=== PATIENT | female | born 1970 | race Hispanic/Latino ===

== ENCOUNTER 2017-11-01 10:34 | Observation (INO) | payer MEDICAID ==
[2017-10-26 14:23] LABS: Basophils % (Auto) 0.3 % (0.0-1.8); Eosinophils # (Auto) 0.3 K/mm3 (0.0-0.4); Eosinophils % (Auto) 3.8 % (0.0-4.3); Hematocrit 38.4 % (30.3-42.9); Hemoglobin 13.1 gm/dl (10.1-14.3); Lymphocytes # (Auto) 2.2 K/mm3 (1.2-5.4); Lymphocytes % (Auto) 30.1 % (13.4-35.0); Mean Corpuscular HGB Conc 34 % (30-34); Mean Corpuscular Hemoglobin 32 pg (28-32); Mean Corpuscular Volume 94 fl (79-97); Monocytes # (Auto) 0.7 K/mm3 (0.0-0.8); Monocytes % (Auto) 9.1 % (0.0-7.3); Platelet Count 231 K/mm3 (140-440); Red Blood Count 4.11 M/mm3 (3.65-5.03); Red Cell Distribution Width 12.9 % (13.2-15.2)
[2017-10-26 14:44] LABS: Alanine Aminotransferase 16 units/L (7-56); Albumin 4.4 g/dL (3.9-5); BUN/Creatinine Ratio 27; Blood Urea Nitrogen 16 mg/dL (7-17); Calcium 9.5 mg/dL (8.4-10.2); Hemolysis Index 2
--- NOTE | 2017-10-26 17:44 | Anesthesia Consultation ---
Anesthesia Consult and Med Hx Date of service: 10/26/17 - Airway Anesthetic Teeth Evaluation: Good ROM Head & Neck: Adequate Mental/Hyoid Distance: Adequate - Pre-Operative Health Status ASA Pre-Surgery Classification: ASA2 Proposed Anesthetic Plan: General (TAP block in AM, pt denies GERD, ok to continue taking diet pills) - Pulmonary Hx Smoking: Yes (Former) - Central Nervous System Hx Psychiatric Problems: No - Other Systems Hx Cancer: Yes (Precancerous skin disease DSAP)
[~2017-11-01 10:34] MED LIST: DILAUDID IV PRN; LACTATED RINGERS 1,000 ML IV SCH; NEURONTIN PO NR; VERSED IV NR; ZOFRAN IV PRN
[2017-11-01] MEDS ORDERED: ZEMURON IV ONE (10:50)
[2017-11-01] MEDS ORDERED: SUBLIMAZE ONE ×2 (10:50→11:51)
[2017-11-01] MEDS ORDERED: XYLOCAINE MPF 2% ONE (10:50)
[2017-11-01] MEDS ORDERED: DIPRIVAN 10 MG/ML IV ONE (10:51)
[2017-11-01] MEDS ORDERED: ANCEF/STERILE WATER 2 GM/20 ML 2 GM/20 ML SYRINGE IV SCH (11:00)
--- NOTE | 2017-11-01 11:01 | History and Physical Report ---
History of Present Illness Date of examination: 11/01/17 Chief complaint: Symptomatic uterine fibroids History of present illness: Pt is a 47yo WF LMP 10/14/17 presents for surgical evaluation and treatment of prolonged heavy vaginal bleeding, prolapsed uterus and pain associated with Essure tubal occlusion coils. Pelvic u/s showed a Normal uterus 8.4 x 4.5 x 4cm , and endometrial biopsy was benign. She desires a Robotic Assisted Total Hysterectomy with Bilateral Salpingectomy. Past History Past Medical History: no pertinent history Past Surgical History: D&C, other (Essure tubal occlusion procedure) Family/Genetic History: none Social history: no significant social history, single, smoking Medications and Allergies Allergies Allergy/AdvReac Type Severity Reaction Status Date / Time hydrocodone Allergy Itching Verified 10/25/17 07:48 Home Medications Medication Instructions Recorded Confirmed Last Taken Type Benzphetamine HCl 50 mg PO BID 10/25/17 11/01/17 10/30/17 History Testosterone [Testim 1%] 1 applicatio TD QAM 10/25/17 11/01/17 11/01/17 08:30 History Thyroid,Pork [[place] Thyroid] 90 mg PO DAILY 10/25/17 11/01/17 11/01/17 08:30 History Fluorouracil 5% (Nf) [Efudex (Nf)] 1 applicatio TP BID 10/26/17 11/01/17 History Active Meds: Active Medications Celecoxib (Celebrex) 200 mg PO PREOP NR Stop: 11/01/17 23:59 Gabapentin (Neurontin) 300 mg PO PREOP NR Stop: 11/01/17 23:59 Hydromorphone HCl (Dilaudid) 0.5 mg IV Q10MIN PRN PRN Reason: Pain , Severe (7-10) Stop: 11/01/17 14:00 Lactated Ringer's (Lactated Ringers) 1,000 mls @ 100 mls/hr IV DIRECT HUSSEIN Midazolam HCl (Versed) 2 mg IV PREOP NR Stop: 11/01/17 23:59 Ondansetron HCl (Zofran) 4 mg IV ONCE PRN PRN Reason: Nausea And Vomiting Stop: 11/01/17 13:00 Review of Systems All systems: negative - Vital Signs Vital signs: Vital Signs Temp Pulse Resp BP 98.4 F 80 18 126/84 10/26/17 13:45 10/26/17 13:45 10/26/17 13:45 10/26/17 13:45 Temp Pulse Resp BP Pulse Ox 98.4 F 80 18 126/84 10/26/17 13:45 10/26/17 13:45 10/26/17 13:45 10/26/17 13:45 - Physical Exam Breasts: Positive: deferred Cardiovascular: Regular rate Lungs: Positive: Clear to auscultation Abdomen: Positive: normal appearance Genitourinary (Female): Positive: normal external genitalia Vagina: Positive: normal moisture Uterus: Positive: normal size Extremities: Positive: normal Results Result Diagrams: 10/26/17 13:50 10/26/17 13:50 All other labs normal. Ultrasound: report reviewed Assessment and Plan - Patient Problems (1) Menorrhagia with regular cycle Onset Date: 11/01/17 Current Visit: Yes Status: Acute Plan to address problem: A: Menorrhagia - uncontrolled with hormonal therapy Uterine prolapse Pelvic pain P: Admit for a Robotic Assisted Total Hysterectomy with Bilateral Salpingectomy Possible anterior colporrhaphy (2) Uterine prolapse Onset Date: 11/01/17 Current Visit: Yes Status: Acute (3) Pelvic pain Onset Date: 11/01/17 Current Visit: Yes Status: Acute
[2017-11-01] MEDS ORDERED: MARCAINE 0.5% 60 ML INFILTRATI ONE (11:03)
[2017-11-01] MEDS ORDERED: DECADRON ONE ×2 (11:03)
[2017-11-01] MEDS ORDERED: NACL BACTERIOSTATIC INFILTRATI ONE (11:03)
[2017-11-01] MEDS ORDERED: NEOSPORIN GU IR ONE ×2 (11:42→14:30)
[2017-11-01] MEDS ORDERED: ePHEDrine SULFATE ONE (12:39)
[2017-11-01] MEDS ORDERED: ZOFRAN ONE (13:26)
[2017-11-01] MEDS ORDERED: ROBINUL ONE (13:26)
[2017-11-01] MEDS ORDERED: NEO SYNEPHRINE/NS Syringe(OR USE) IV ONE (13:26)
[2017-11-01] MEDS ORDERED: BLOXIVERZ ONE (13:26)
[2017-11-01] MEDS ORDERED: NACL 0.9% IR ONE ×2 (14:30)
[2017-11-01] MEDS ORDERED: SODIUM CHLORIDE FLUSH SYRINGE 10 ML IV PRN (14:31)
[2017-11-01] MEDS ORDERED: PERCOCET 5/325 PO PRN (14:31)
[2017-11-01] MEDS ORDERED: ZOFRAN IV PRN (14:31)
[2017-11-01] MEDS ORDERED: MILK OF MAGNESIA PO PRN (14:31)
--- NOTE | 2017-11-01 14:53 | Operative Report ---
Operative Report Operative Report: Date of procedure: 11/01/2017 Pre-operative diagnosis: 1. Menorrhagia 2. Uterine prolapse 3. Pelvic pain Post-operative diagnosis: Same with bilateral ovarian cysts Procedure name(s): 1. Robotic-assisted total hysterectomy 2. Bilateral salpingectomy 3. Bilateral ovarian cystectomy Surgeon: Clem Max MD [employer]er: Diamond Guillen CSA Anesthesia: CAITY Block followed by general endotracheal intubation EBL: 70 mL's Findings: A 10-12 week size uterus with normal tubes bilaterally and bilateral ovarian cysts. There was a moderate size cystocele that was present on examination under anesthesia - the cystocele had resolved after removal of the uterus. Procedure: After the patient's first correctly identified she was prepped and draped in the usual sterile fashion and placed in the dorsolithotomy position. The bladder was first catheterized using Mauricio catheter and the speculum was placed in the vagina and the anterior lip of the cervix was grasped using a single-tooth tenaculum, and the medium Vesicare cup was placed. The tenaculum and speculum was then removed from the vagina and attention was then turned to the abdomen. The skin knife was used to make a small incision approximately 5 cm above the umbilicus through which a 12 mm trocar was placed under direct visualization. After adequate amount of abdominal insufflation visualization of the pelvic organs found the uterus to be enlarged and the tubes were normal bilaterally and the ovaries showed bilateral ovarian cysts. A right and left paramedian incision was made through which the 8 mm trochars were placed under direct visualization and a 5 mm trocar was placed in the right lower quadrant. The patient was then placed in steep Trendelenburg positioning and the robot was docked on the patient's left side. After all the robotic ports were connected and adequate functioning of the robotic arms were tested the surgeon then proceeded to the console to begin the hysterectomy. First the left round ligament was grasped, cauterized and cut, the left utero- ovarian ligaments were grasped, cauterized and cut, and the left fallopian tube also grasped, cauterized and cut along the mesosalpinx thus freeing the left ovary from the left uterine sidewall. The same procedure was performed on the right. The right round ligament was grasped, cauterized and cut, the right utero-ovarian ligaments were grasped, cauterized and cut, and the right fallopian tube also grasped, cauterized and cut along the mesosalpinx thus freeing the right ovary from the right uterine sidewall. The right and left ovarian cysts were excised and sent to pathology. The bladder flap was taken down anteriorly and the uterine vessels were grasped, cauterized and cut bilaterally. The cardinal ligaments were sequentially grasped, cauterized and cut down to the level of the uterosacral ligaments. At this time the posterior colpotomy was performed over the Vcare cup, and the cervix was circumscribed beginning posteriorly and meeting anteriorly until the cervix was freed. The cervix and uterus was then removed through the vagina and sent to pathology. The vaginal cuff was then closed using 2-0 Vloc suture in a running fashion. Irrigation was then performed and after good hemostasis was achieved the procedure was considered complete. The Tisseel sealant was then sprayed across the vaginal cuff site, and after excellent hemostasis was assured Interceed was placed across the vaginal cuff site. All instruments were then removed from the abdominal cavity. And each incision was closed using 0 Vicryl suture in a [id number] configuration on the fascia followed by 4-0 Monocryl suture in a subcuticular fashion on the skin. Each incision was also infiltrated using 0.5% Marcaine solution. The vaginal pack was removed. The patient tolerated the procedure well and was transported to the recovery room in stable condition.
[2017-11-01] MEDS: TORADOL IV SCH ×2 (15:05→21:22)
[2017-11-01] MEDS: DILAUDID IV PRN ×2 (15:20→15:45)
[2017-11-01] MEDS ORDERED: DILAUDID ONE (15:22)
[2017-11-01] MEDS: D5LR 1,000 ML IV SCH ×2 (15:50→21:23)
[2017-11-01] MEDS: ANCEF/NS 1 GM/50 ML 1 GM/50 ML BAG IV SCH (21:22)
[2017-11-01] MEDS ORDERED: COLACE PO SCH (22:00)
[2017-11-02] MEDS: ANCEF/NS 1 GM/50 ML 1 GM/50 ML BAG IV SCH (06:11)
[2017-11-02] MEDS: TORADOL IV SCH (06:12)
[2017-11-02 06:14] LABS: Hematocrit 36.5 % (30.3-42.9); Hemoglobin 11.9 gm/dl (10.1-14.3)
[2017-11-02] MEDS: D5LR 1,000 ML IV SCH (06:17)
--- NOTE | 2017-11-02 08:38 | Progress Note ---
Assessment and Plan - Patient Problems (1) Menorrhagia with regular cycle Onset Date: 11/01/17 Current Visit: Yes Status: Resolved (2) Uterine prolapse Onset Date: 11/01/17 Current Visit: Yes Status: Resolved (3) Pelvic pain Onset Date: 11/01/17 Current Visit: Yes Status: Resolved (4) Status post robot-assisted surgical procedure Onset Date: 11/02/17 Current Visit: Yes Status: Resolved Plan to address problem: A: S/P RATH - POD #1 Doing well P: May go home today. Subjective - Subjective Date of service: 11/02/17 Principal diagnosis: s/p RATH - POD #1 Interval history: Pt is a 47yo WF LMP 10/14/17 who presented for surgical evaluation and treatment of prolonged heavy vaginal bleeding, prolapsed uterus and pain associated with Essure tubal occlusion coils. She underwent an uncomplicated Robotic Assisted Total Hysterectomy with Bilateral Salpingectomy, and is currently feeling well. No complaints. She is tolerating a soft diet without nausea or vomiting, ambulating and voiding without difficulty. Patient reports: appetite normal, voiding normally, pain well controlled, flatus , ambulating normally, no dizzy ambulation, no nauseated Objective - Vital Signs Latest vital signs: Vital Signs Temp Pulse Resp BP BP Pulse Ox 11/02/17 04:00 98.7 F 77 18 107/61 11/02/17 00:00 98.7 F 78 18 100/54 11/01/17 19:30 98.7 F 78 16 101/64 11/01/17 16:20 97.8 F 74 18 103/53 103/53 96 11/01/17 16:15 14 11/01/17 16:00 75 15 106/55 96 11/01/17 15:45 74 13 102/53 96 11/01/17 15:30 77 14 101/58 97 11/01/17 15:20 15 11/01/17 15:15 68 16 99/53 97 11/01/17 15:05 15 11/01/17 15:00 69 15 97/54 99 11/01/17 14:50 57 L 14 104/54 100 11/01/17 14:45 55 L 12 97/55 100 11/01/17 14:40 97.0 F L 74 13 100/58 100 11/01/17 12:10 81 13 118/61 100 07/31/18 12:05 85 14 115/63 100 11/01/17 12:00 94 H 14 120/70 100 11/01/17 11:55 83 17 118/70 100 11/01/17 11:40 98.8 F 72 16 110/63 99 11/01/17 10:50 98.8 F 72 16 110/63 99 Intake and Output 11/01/17 11/02/17 11/02/17 22:59 06:59 14:59 Intake Total 968.75 1000 Output Total 985 2400 Balance -16.25 -1400 Intake: IV 968.75 1000 ANCEF/NS 1 GM/50 ML 1 gm 50 In 50 ml @ 100 mls/hr IV Q8H HUSSEIN Rx#:[id number] D5lr 1,000 ml @ 125 mls/ 693.75 1000 hr IV DIRECT HUSSEIN Rx#: [id number] Left Wrist 125 Output: Urine 985 2400 Indwelling Catheter 900 2400 Other: Total, Output Amount 900 800 Voiding Method Indwelling Catheter Indwelling Catheter Weight 83.915 kg - Exam Breasts: Present: deferred Cardiovascular: Present: Regular rate Lungs: Present: Clear to auscultation Abdomen: Present: normal appearance, soft Incision: Present: normal, dry, intact - Labs Labs: Laboratory Tests 10/26/17 10/26/17 10/26/17 13:50 13:50 13:50 WBC 7.3 RBC 4.11 Hgb 13.1 Hct 38.4 MCV 94 MCH 32 MCHC 34 RDW 12.9 L Plt Count 231 Lymph % (Auto) 30.1 Kerr % (Auto) 9.1 H Eos % (Auto) 3.8 Baso % (Auto) 0.3 Lymph # 2.2 Kerr # 0.7 Eos # 0.3 Baso # 0.0 Seg Neutrophils % 56.7 Seg Neutrophils # 4.1 Sodium 141 Potassium 4.3 Chloride 102.8 Carbon Dioxide 25 Anion Gap 18 BUN 16 Creatinine 0.6 L Estimated GFR > 60 BUN/Creatinine Ratio 27 Glucose 82 Calcium 9.5 Total Bilirubin 0.40 AST 16 ALT 16 Alkaline Phosphatase 51 Total Protein 7.0 Albumin 4.4 Albumin/Globulin Ratio 1.7 HCG, Qual Negative Blood Type Antibody Screen 11/01/17 11/02/17 11:10 05:49 WBC RBC Hgb 11.9 Hct 36.5 MCV MCH MCHC RDW Plt Count Lymph % (Auto) Kerr % (Auto) Eos % (Auto) Baso % (Auto) Lymph # Kerr # Eos # Baso # Seg Neutrophils % Seg Neutrophils # Sodium Potassium Chloride Carbon Dioxide Anion Gap BUN Creatinine Estimated GFR BUN/Creatinine Ratio Glucose Calcium Total Bilirubin AST ALT Alkaline Phosphatase Total Protein Albumin Albumin/Globulin Ratio HCG, Qual Blood Type A POSITIVE Antibody Screen Negative
--- NOTE | 2017-11-02 09:08 | Discharge Summary ---
Providers - Providers Date of Admission: 11/01/17 14:31 Date of discharge: 11/02/17 Attending physician: ADARSH LUCIA Primary care physician: CHASITY CANNON Hospitalization Reason for admission: other (Menorrhagia; uterine prolapse; pelvic pain) Procedure: other (Robotic Assisted Total Hysterectomy with Bilateral Salpingectomy) Incision: normal, dry, intact Other procedures: none complications: none Discharge diagnosis: other (s/p RATH ) Hospital course: Pt is a 47yo WF LMP 10/14/17 who presented for surgical evaluation and treatment of prolonged heavy vaginal bleeding, prolapsed uterus and pain associated with Essure tubal occlusion coils. Pelvic u/s showed a Normal uterus 8.4 x 4.5 x 4cm, and endometrial biopsy was benign. She underwent an uncomplicated Robotic Assisted Total Hysterectomy with Bilateral Salpingectomy, and is currently feeling well. No complaints. By POD#1 she was tolerating a reg diet without nausea or vomiting, ambulating and voiding without difficulty. She was therefore discharged to home on POD #1 in stable condition. Condition at discharge: Good Disposition: DC-01 TO HOME OR SELFCARE - Discharge Diagnoses (1) Menorrhagia with regular cycle Status: Resolved (2) Uterine prolapse Status: Resolved (3) Pelvic pain Status: Resolved Plan - Discharge Medications Prescriptions: Ibuprofen [Motrin] 800 mg PO Q8HR PRN #30 tablet PRN Reason: Mild Pain Unrelieved By Apap oxyCODONE /ACETAMINOPHEN [Percocet 5/325 mg] 1 tab PO Q6H PRN #30 tablet PRN Reason: Pain, Moderate (4-6) - Provider Discharge Summary Activity: routine, no sex for 6 weeks, no heavy lifting 4 weeks, no strenuous exercise Diet: routine Instructions: routine Additional instructions: [] Smoking cessation referral if applicable(refer to patient education folder for contact #) [] Refer to [facility]'s [facility] Booklet Call your doctor immediately for: * Fever > 100.5 * Heavy vaginal bleeding ( >1 pad per hour) * Severe persistent headache * Shortness of breath * Reddened, hot, painful area to leg or breast * Drainage or odor from incision. * Keep incision clean and dry at all times and follow doctor's instructions regarding bathing/showering - Follow up plan Follow up: CHASITY CANNON MD [Primary Care Provider] - 7 Days ADARSH LUCIA MD [Staff Physician] - 14 Days
[2017-11-02 11:12] VITALS: BP 107/66
== END 2017-11-02 11:08 | disposition home or self-care (01) ==
LOC: OR 10:34 → OB 14:31
PROVIDERS: ADMIT Obstetrics & Gynecology; ATTEND Obstetrics & Gynecology
DX: N81.4 Uterovaginal prolapse, unspecified (principal); N92.0 Excessive and frequent menstruation with regular cycle; N83.202 Unspecified ovarian cyst, left side; N83.201 Unspecified ovarian cyst, right side; Z87.891 Personal history of nicotine dependence; Z85.828 Personal history of other malignant neoplasm of skin
CPT/HCPCS: 36415; 58552; 58662; 64450; 80053; 84703; 85014; 85018; 85025; 86850; 86900; 86901; 88305; 88307; 96365; 96375; 96376; A4217; C1765; C9250; G0378; J0690; J1100; J1170; J1885; J2250; J2370; J2405; J2704; J2710; J3010; J7120; J7121; S2900